=== PATIENT | male | born 1975 | race Two or more races ===

== ENCOUNTER 2018-02-12 18:12 | Emergency (ER) | payer OTHER ==
[~2018-02-12] VITALS: Ht 165.1 cm; Wt 97.5 kg
[2018-02-12] MEDS ORDERED: LISINOPRIL20 MG PO (18:24)
== END 2018-02-12 20:37 | disposition home or self-care (01) ==
LOC: ED 18:12
DX: R51 Headache (principal); Z88.5 Allergy status to narcotic agent; Z79.899 Other long term (current) drug therapy
CPT/HCPCS: 99282

== ENCOUNTER 2019-12-06 22:07 | Emergency (ER) | payer OTHER ==
[~2019-12-06] VITALS: Ht 165.1 cm; Wt 109.3 kg
[~2019-12-06 22:07] MED LIST: LISINOPRIL20 MG PO
--- NOTE | 2019-12-07 15:04 | EKG ---
[facility] [address] [facility] [place], [place] [address] Signed Normal sinus rhythm Rightward axis Borderline ECG No previous ECGs available Confirmed by LOWELL BRAXTON MD ([id number]) on 12/07/2019 3:04:00 PM Electronically Signed By: LOWELL RBAXTON MD 12/07/19 1504 PATIENT NAME: TORI MONTOYA Electrocardiogram DATE OF : 73 PHYSICIAN: LOWELL BRAXTON MD REPORT #: [id number] REPORT IS CONFIDENTIAL AND NOT TO BE RELEASED WITHOUT AUTHORIZATION
== END 2019-12-06 23:44 | disposition home or self-care (01) ==
LOC: ED 22:07
DX: R00.2 Palpitations (principal); I10 Essential (primary) hypertension; Z88.5 Allergy status to narcotic agent; Z79.899 Other long term (current) drug therapy
CPT/HCPCS: 71045; 80053; 83735; 84484; 85025; 93005; 93010; 93225; 93226; 93227; 99285-25

== ENCOUNTER 2020-01-28 10:48 | Emergency (ER) | payer OTHER ==
[~2020-01-28] VITALS: Ht 165.1 cm; Wt 109.3 kg
--- OUTSIDE RECORDS SUMMARY | ~2020-01-28 | XMS | Encounter Summary ---
Demographics + + + | Address | [address] | | | [place] [address] | + + + | Home Phone | | + + + | Preferred Language | Unknown | + + + | Marital Status | Single | + + + | Tenriism Affiliation | Unknown | + + + | Race | Unknown | + + + | Ethnic Group | Unknown | + + + Author + + + | Author | [facility] | | | and [place] | + + + | Organization | [facility] | | | and [place] | + + + | Address | Unknown | + + + | Phone | Unavailable | + + + Support + + +---------+ + | Name | Relationship | Address | Phone | + + +---------+ + | List None To | ECON | Unknown | | + + +---------+ + Care Team Providers + +------+ + | Care Wax Specialist Name | Role | Phone | + +------+ + | Lynn Gallardo PA-C | PCP | | + +------+ + Reason for Visit + + + | Reason | Comments | + + + | New Patient | bump on tongue, hurts when bits,has been there for about year in | | | half | + + + Evaluate & Treat (Routine) +--------+--------+ + + + + | Status | Reason | Specialty | Diagnoses / | Referred By | Referred To | | | | | Procedures | Contact | Contact | +--------+--------+ + + + + | Closed | | Otolaryngolog | Diagnoses | [place], | Tyron Minor | | | | y | Bump on end | RAUL Bailey | MD Jair [address] | | | | | of tongue | [address] | | | | | Procedures | [facility] | [address] | | | | | Office | [address] | [place], | | | | | Consult | [place], | [place] [address] | | | | | | [place] [address] | Phone: | | | | | | Phone: | [phone] | | | | | | [phone] | Fax: | | | | | | Fax: | [phone] | | | | | | [phone] | | +--------+--------+ + + + + Encounter Details +--------+---------+ + + + | Date | Type | Department | Care Team | Description | +--------+---------+ + + + | 05/19/ | Office | [facility] | Tyron Minor MD | Neoplasm of | | 2015 | Visit | OTOLARYNGOLOGY [address] | [address] [place] | uncertain behavior | | | | [address] | [address] [place], | of lip, oral cavity, | | | | [place], [place] | [place] [address] | and pharynx | | | | [address] | [phone] | (Primary Dx) | | | | [phone] | | | +--------+---------+ + + + Social History + +-------+ +--------+------+ | Tobacco Use | Types | Packs/Day | Years | Date | | | | | Used | | + +-------+ +--------+------+ | Never Smoker | | | | | + +-------+ +--------+------+ + + +---------+ + | Alcohol Use | Drinks/Week | oz/Week | Comments | + + +---------+ + | Not Asked | 0 Standard drinks | 0.0 | | | | or equivalent | | | + + +---------+ + + + + | Sex Assigned at | Date Recorded | | | | + + + | Not on file | | + + + + + + + | Job Start Date | Occupation | Industry | + + + + | Not on file | Not on file | Not on file | + + + + + + + + | Travel History | Travel Start | Travel End | + + + + + + | No recent travel history available. | + + documented as of this encounter Last Filed Vital Signs + + + + + | Vital Sign | Reading | Time Taken | Comments | + + + + + | Blood Pressure | - | - | | + + + + + | Pulse | 70 | 05/19/2015 8:06 AM | | | | | PDT | | + + + + + | Temperature | - | - | | + + + + + | Respiratory Rate | 16 | 05/19/2015 8:06 AM | | | | | PDT | | + + + + + | Oxygen Saturation | 93% | 05/19/2015 8:06 AM | | | | | PDT | | + + + + + | Inhaled Oxygen | - | - | | | Concentration | | | | + + + + + | Weight | 97.5 kg (215 lb) | 05/19/2015 8:06 AM | | | | | PDT | | + + + + + | Height | 167.6 cm (5' 6") | 05/19/2015 8:06 AM | | | | | PDT | | + + + + + | Body Mass Index | 34.7 | 05/19/2015 8:06 AM | | | | | PDT | | + + + + + documented in this encounter Progress Notes Tyron Minor MD - 05/19/2015 8:37 AM PDT [facility] OTOLARYNGOLOGY [address] [facility] [address] OFFICE NOTE TYRON MINOR MD Patient: TORI MCCORMICK Admitting: MR #: [id number] LOC: PT TYPE: Adm Date: 05/19/2015 : 1975 NEW PATIENT VISIT DATE OF VISIT: 05/19/2015. The patient comes in because he has an area that he traumatized on the tip of his tongue b ack about a year and a half ago. It does not go down and he occasionally bites on it and i nflames it and continues to have a cycle of swelling and then going down. He comes in to [facility] if he can get rid of this because it is giving him a lot of trouble. He is not having any other complaints at the current time. PHYSICAL EXAMINATION: GENERAL: Shows an alert 39-year-old male. He is communicating well. His voice quality is good. HEENT: Skin of the face, nose and ears all appear healthy. Parotid, submandibular gland areas are smooth. Facial movement is symmetrical, without any weakness noted. Ear canals are open, they are clean. Drums are clear. Nasal passages: No obstruction, no mass or le jaclyn noted. Floor of the mouth, buccal mucosa, hard palate, teeth, lips, gums are smooth a nd healthy. No mass seen in the oropharynx and posterior pharyngeal wall was smooth. Soft palate was smooth and moved symmetrically. The tongue, he has an elevated lesion on the t ip of his tongue on the left-hand side. It looks like a scar tissue type of lesion. It s ticks out and it matches where he has a tooth that is bent back in and not straight on the left-hand side. This is the area that he keeps traumatizing. IMPRESSION: Left tongue growth secondary to trauma. PLAN: The patient was taken down to the minor procedure room and the lesion was removed. PROCEDURE: After the patient was advised on the procedure, the area to be removed was ini tially painted with some viscous Xylocaine. Once this was completed, it was injected with 1-percent Xylocaine with epinephrine. An elliptical incision was made to remove the entire lesion and then the wound was closed with interrupted 4-0 Vicryl sutures, 2 of them to co ntrol bleeding. Once completed, the patient was scheduled to have the sutures removed in 6 days. PROGNOSIS: Immediate and remote is good. BLOOD LOSS: About 1 mL. TYRON MINOR MD Dictated by TYRON MINOR MD 05/19/2015 08:37:34 Transcribed on 05/19/2015 08:49:11 by terry job# [id number] Confirmation #: [id number] signed by Tyron Minor MD at 05/19/2015 10:20 AM Tyron Patterson MD - 05/19/2015 8:33 AM PDTSee dictation #[id number] signed by Jose Minor MD at 05/19/2015 8:41 AM PDTdocumented in this encounter Plan of Treatment Not on filedocumented as of this encounter Visit Diagnoses + + | Diagnosis | + + | Neoplasm of uncertain behavior of lip, oral cavity, and pharynx - Primary | + + documented in this encounter
--- OUTSIDE RECORDS SUMMARY | ~2020-01-28 | XMS | Encounter Summary ---
Demographics + + + | Address | [address] | | | [place] [address] | + + + | Home Phone | | + + + | Preferred Language | Unknown | + + + | Marital Status | Single | + + + | Tenriism Affiliation | Unknown | + + + | Race | Unknown | + + + | Ethnic Group | Other Race | + + + Author + + + | Author | [facility] | + + + | Organization | [facility] | + + + | Address | Unknown | + + + | Phone | Unavailable | + + + Support + + +---------+ + | Name | Relationship | Address | Phone | + + +---------+ + | None Per Pt | ECON | Unknown | Unavailable | + + +---------+ + Care Team Providers + +------+ + | Care Automatic I Threading Machine Feeder Name | Role | Phone | + +------+ + | Matthew Moise MD | PCP | | + +------+ + Reason for Visit + + + | Reason | Comments | + + + | Follow-up visit | | + + + Office Visit - E/M Services (Routine) +--------+--------+ + + + + | Status | Reason | Specialty | Diagnoses / | Referred By | Referred To | | | | | Procedures | Contact | Contact | +--------+--------+ + + + + | Closed | | Ophthalmology | | [place], | [place], | | | | | | Cristhian Duarte MD | Tosin Mulligan MD | | | | | | [address] | [address] | | | | | | [address] | [address] | | | | | | [place] | [place] | | | | | | [address] | [place], [place] | | | | | | Phone: | [phone] | | | | | | [phone] | Phone: | | | | | | Fax: | [phone] | | | | | | [phone] | Fax: | | | | | | | [phone] | +--------+--------+ + + + + Encounter Details +--------+---------+ + + + | Date | Type | Department | Care Team | Description | +--------+---------+ + + + | 06/06/ | Office | [facility] | Tosin Clancy, | Neoplasm of | | 2018 | Visit | [place] [facility] at | [address] | uncertain behavior | | | | [facility] [address] | [address] | of eye (Primary Dx) | | | | [address] | [place], [place] | | | | | Eye [place], [facility] | [address] | | | | | floor [place], [place] | [phone] | | | | | [address] | | | +--------+---------+ + + + Social History + +-------+ +--------+------+ | Tobacco Use | Types | Packs/Day | Years | Date | | | | | Used | | + +-------+ +--------+------+ | Former Smoker | | | | | + +-------+ +--------+------+ + +---+---+---+ | Smokeless Tobacco: | | | | | Never Used | | | | + +---+---+---+ + + +---------+ + | Alcohol Use | Drinks/Week | oz/Week | Comments | + + +---------+ + | Yes | | | very seldom | + + +---------+ + + + [...] + + documented as of this encounter Progress Notes Tosin Clancy MD - 06/06/2018 10:00 AM PDTFormatting of this note might be different fro m the original. [facility] Division Progress Note 06/06/2018 Neptali Mccormick is a 42 y.o. male who returns for follow up: Chief Complaint Patient presents with Follow-up visit RTC for pigmented lesion OS. Reports that he is doing well. Thinks lesion may have grown a little. Never had any pain does not bother him in any way. VA remains stable. Pain: 0 ROS: Medications, allergies, medical, surgical and family history were reviewed by me at th is visit utilizing [facility] patient history form and Epic patient history pertinent positives: No past medical history on file. Past Surgical History Procedure Laterality Date Wrist surgery 2004 History Smoking Status Former Smoker Smokeless Tobacco Never Used No Known Allergies Current Outpatient Prescriptions (Other) Medication Sig lisinopril All else unless noted was neg. (fever, wt. loss, ENT, cardiovascular, pulmonary, GI, urinar y, neurologic, endocrine, bleeding/blood disorders, AIDS/HIV, cancer/tumors, arthritis) Medical Management Trainer Attestation: Brijesh Boyd, performed and reviewed the above history, medica tions, allergies, as well as performed elements noted in the Base Ophthalmology Exam. Examination: Base Exam Visual Acuity (Snellen - Linear) Right Left Dist sc 20/20 20/20 Tonometry (Tonopen, 10:47 AM) Right Left Pressure 14 13 Neuro/Psych Oriented x3: Yes Mood/Affect: Normal Slit Lamp and Fundus Exam Slit Lamp Exam Right Left Lids/Lashes Normal Normal Conjunctiva/Sclera 7:30 patch of light pigment at limbus 2.4 mm x 2.4 mm, temporal pinguec jamila, nasal pinguecula, everted lid WNL Temporal pinguecula, pigmented elevated lesion 4 mm ( v) x 4.4 mm (h) - most pigmented nasally with variable pigment through rest of the lesion. C lear cysts throughout lesion with no feeder vessels, Everted lids WNL Cornea All layers clear All layers clear Anterior Chamber Deep and quiet Deep and quiet Iris Normal Normal Lens Clear Clear Vitreous Normal Normal IMPRESSION: 1. Elevated pigmented conjunctival lesion, OS - Has been present since at least 2004 - Cysts in lesion visible on clinical exam and anterior segment OCT - Patient is Lithuanian - Unchanged compared with last visit 2. Complexion-related hyperpigmentation, OD PLAN: 1. Reviewed elevated pigmented lesions and differential diagnosis including, most likely, n evus vs. melanoma 2. Given presence since 2004, clear cysts, and no change since last visit discussed that mo st likely nevus and will continue to monitor 3. Patient to obtain records from Dr. Joy's office for size measurements - have not yet been able to get - If change, plan for excision with cryotherapy 06/11 Addendum: records reviewed but without measurements so unable to compare to prior to f irst exam at [facility] 4. Return precautions reviewed including for change noted by patient or family RTC 6 months with slit lamp photos, sooner if needed TOSIN CLANCY MD [facility] [place] [address] Mailcode: [place] [phone] documented in this en counter Plan of Treatment +--------+---------+ + + + | Date | Type | Specialty | Care Team | Description | +--------+---------+ + + + | 03/11/ | Office | Ophthalmology | Tosin Clancy, | | | 2019 | Visit | | MD Yousif | | | | | | [address] | | | | | | [place], [place] | | | | | | [address] | | | | | | [phone] | | | | | | | | +--------+---------+ + + + documented as of this encounter Procedures + +--------+ + + + | Procedure Name | Priori | Date/Time | Associated Diagnosis | Comments | | | ty | | | | + +--------+ + + + | SLIT LAMP PHOTOS | Routin | 06/06/2018 | Neoplasm of | Results for this | | | e | 11:17 AM | uncertain behavior | procedure are in the | | | | PDT | of eye | results section. | + +--------+ + + + documented in this encounter Results SLIT LAMP PHOTOS (06/06/2018 11:17 AM PDT) + + + | Narrative | Performed At | + + + | Elevated | [facility] | | nasal, pigmented conjunctival lesion with variable pigmentation. | [facility] | | +definite cysts No change compared with last photos | | |No change compared with last photos | | + + + + + + + + | Performing | Address | City/State/Zipcode | Phone Number | | Organization | | | | + + + + + | [facility] | [address] | [place] [address] | | | INSTITUTE | [place]. 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
--- OUTSIDE RECORDS SUMMARY | ~2020-01-28 | XMS | Encounter Summary ---
Demographics + + + | Address | [address] | | | [place] [address] | + + + | Home Phone | | + + + | Preferred Language | Unknown | + + + | Marital Status | Single | + + + | Zoroastrian Affiliation | Unknown | + + + | Race | Unknown | + + + | Ethnic Group | Other Race | + + + Author + + + | Author | [facility] | + + + | Organization | [facility] | + + + | Address | Unknown | + + + | Phone | Unavailable | + + + Support + + +---------+ + | Name | Relationship | Address | Phone | + + +---------+ + | None Per Pt | ECON | Unknown | Unavailable | + + +---------+ + Care Team Providers + +------+ + | Care Masonry Teacher Name | Role | Phone | + [...] [address] | | | | | | [address] | [place], [place] | | | | | | Phone: | [phone] | | | | | | [phone] | Phone: | | | | | | Fax: | [phone] | | | | | | [phone] | Fax: | | | | | | | [phone] | +--------+--------+ + + + + Encounter Details +--------+---------+ + + + | Date | Type | Department | Care Team | Description | +--------+---------+ + + + | 11/28/ | Office | [facility] | Tosin Clancy, | Neoplasm of | | 2019 | Visit | [place] [facility] at | [address] | uncertain behavior | | | | [facility] [address] | [address] | of eye (Primary Dx) | | | | [address] | [place], [place] | | | | | Eye [place], [facility] | [address] | | | | | floor [place], [place] | [phone] | | | | | [address] | [...] encounter Progress Notes Tosin Clancy MD - 11/28/2018 10:40 AM PSTFormatting of this note might be different fro m the original. Cornea Division Progress Note 11/28/2018 Neptali Mccormick is a 43 y.o. male who returns for follow up Chief Complaint Patient presents with Follow-up visit RTC for 6 month follow up for elevated pigmented conjunctival lesion, OS Pt states OS is doing well. Denies any irritations or discomforts. States VA is stable. Cur rently does not use any gtts. Pain: 0 ROS: Medications, allergies, medical, surgical and family history were reviewed by me at th is visit utilizing [facility] patient history form and Epic patient history pertinent positives: No past medical history on file. Past Surgical History Procedure Laterality Date Wrist surgery 2004 Family History History Smoking Status Former Smoker Smokeless Tobacco Never Used No Known Allergies Current Outpatient Prescriptions (Other) Medication Sig lisinopril All else unless noted was neg. (fever, wt. loss, ENT, cardiovascular, pulmonary, GI, urinar y, neurologic, endocrine, bleeding/blood disorders, AIDS/HIV, cancer/tumors, arthritis) Private Household Worker Attestation: IShirlene, performed and reviewed the above history, medica tions, allergies, as well as performed elements noted in the Base Ophthalmology Exam. Examination: Base Exam Visual Acuity (Snellen - Linear) Right Left Dist sc 20/20 20/20 Tonometry (Tonopen, 10:50 AM) Right Left Pressure 16 19 Neuro/Psych Oriented x3: Yes Mood/Affect: Normal Slit [...] and anterior segment OCT - Patient is Yemeni - Unchanged compared with last visit on both exam and photos (slit lamp photo with lashaun connor of growth inferiorly but likely artifact because space between lesion and vessels present on clinical exam) 2. Complexion-related hyperpigmentation, OD PLAN: 1. Reviewed elevated pigmented lesions and differential diagnosis including nevus vs. melan wilda 2. Given presence since 2004, clear cysts, and no change since last visit discussed that mo st likely nevus and will continue to monitor 3. Return precautions reviewed including for change noted by patient or family - Discussed follow up in [place] but patient prefers to be followed here for this RTC 1 year with slit lamp photos, sooner as needed - JIGNESHE TOSIN CLANCY MD [facility] [place] [facility] [address] Mailcode: [place] [phone] documented in this en counter Plan of Treatment +--------+---------+ + + + | Date | Type | Specialty | Care Team | Description | +--------+---------+ + + + | 03/11/ | Office | Ophthalmology | Tosin Clancy, | | | 2019 | Visit | | MD [address]ousif | | | | | | [address] | | | | | | [place], [place] | | | | | | [address] | | | | | | [phone] | | | | | | | | +--------+---------+ + + + documented as of this encounter Procedures + +--------+ + + + | Procedure Name | Priori | Date/Time | Associated Diagnosis | Comments | | | ty | | | | + +--------+ + + + | SLIT LAMP PHOTOS | Routin | 11/28/2018 | Neoplasm of | Results for this | | | e | 1:00 PM | uncertain behavior | procedure are in the | | | | PST | of eye | results section. | + +--------+ + + + documented in this encounter Results SLIT LAMP PHOTOS (11/28/2018 1:00 PM PST) + + + | Narrative | Performed At | + + + | Elevated | [facility] | | pigmented lesion of nasal conjunctiva with definite cysts. Unchanged | [facility] | | compared with last photos | | + + + + + + + + | Performing | Address | City/State/Zipcode | Phone Number | | Organization | | | | + + + + + | [facility] | [address] | [place] [address] | | | INSTITUTE | [place]. 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
--- OUTSIDE RECORDS SUMMARY | ~2020-01-28 | XMS | Clinical Summary ---
Demographics + + + | Address | [address] | | | [place] [address] | + + + | Home Phone | | + + + | Preferred Language | Unknown | + + + | Marital Status | Single | + + + | Jehovah'S Witness Affiliation | Unknown | + + + | Race | Unknown | + + + | Ethnic Group | Other Race | + + + Author + + + | Author | [facility] | + + + | Organization | [facility] | + + + | Address | Unknown | + + + | Phone | Unavailable | + + + Support + + +---------+ + | Name | Relationship | Address | Phone | + + +---------+ + | None Per Pt | ECON | Unknown | Unavailable | + + +---------+ + Care Team Providers + +------+ + | Care Sheet Sorter Name | Role | Phone | + +------+ + | Matthew Moise MD | PCP | | + +------+ + Source Comments [facility] is fully live on both [facility] and [facility] InPatient.[facility] Allergies No Known Allergies Medications + +-----+ +---------+------+------+-------+ | Medication | Sig | Dispensed | Refills | Star | End | Statu | | | | | | t | Date | s | | | | | | Date | | | + +-----+ +---------+------+------+-------+ | lisinopril 20 mg | | | 0 | 03/2 | | Activ | | oral tablet | | | | 6/20 | | e | | | | | | 18 | | | + +-----+ +---------+------+------+-------+ Active Problems Not on file Social History + +-------+ +--------+------+ | Tobacco [...] recent travel history available. | + + Last Filed Vital Signs + + + + + | Vital Sign | Reading | Time Taken | Comments | + + + + + | Blood Pressure | 147/90 | 01/01/2013 9:38 AM | | | | | PDT | | + + + + + | Pulse | 84 | 01/01/2013 9:38 AM | | | | | PDT | | + + + + + | Temperature | - | - | | + + + + + | Respiratory Rate | - | - | | + + + + + | Oxygen Saturation | - | - | | + + + + + | Inhaled Oxygen | - | - | | | Concentration | | | | + + + + + | Weight | 95.3 kg (210 lb) | 07/30/2013 4:07 PM | | | | | PDT | | + + + + + | Height | 162.6 cm (5' 4") | 07/30/2013 4:07 PM | | | | | PDT | | + + + + + | Body Mass Index | 36.05 | 07/30/2013 4:07 PM | | | | | PDT | | + + + + + Plan of Treatment +--------+---------+ + + + | Date | Type | Specialty | Care Team | Description | +--------+---------+ + + + | 03/11/ | Office | Ophthalmology | Hellen Clancy, | | | 2019 | Visit | | [address] | [address] | | | | | | [place], [place] | | | | | | [address] | | | | | | [phone] | | | | | | | | +--------+---------+ + + + + + + + + | Health Maintenance | Due Date | Last Done | Comments | + + + + + | Influenza (Flu) | | | | | vaccination (#1) | 9 | | | + + + + + | Pneumococcal | Aged Out | | No longer eligible | | vaccination | | | based on patient's | | | | | age to complete this | | | | | topic | + + + + + Results Not on filefrom Last 3 Months Insurance + +--------+ +--------+ + +------+ | Payer | Benefi | Subscriber | Effect | Phone | Address | Type | | | t Plan | ID | tonia | | | | | | / | | Dates | | | | | | Group | | | | | | + +--------+ +--------+ + +------+ | [employer] | PHP | [phone] | 09/30/19 | [phone] | [address] | PPO | | | [address] | | 10-Pre | 0 | [address] | | [address] | | sent | | [place], | | | | [place] | | | | [place] [address] | | + +--------+ +--------+ + +------+ + +--------+ +--------+ + + | Guarantor Name | Accoun | Relation to | Date | Phone | Billing Address | | | t Type | Patient | of | | | | | | | | | | + +--------+ +--------+ + + | Neptali Mccormick | Person | Self | [birth year] | [address] | | | [place] | | 1975 | [phone] | [place] [address] | | | vinicius | | | 6 (Home) | | + +--------+ +--------+ + +
--- OUTSIDE RECORDS SUMMARY | ~2020-01-28 | XMS | Encounter Summary ---
Demographics + + + | Address | [address] | | | [place] [address] | + + + | Home Phone | | + + + | Preferred Language | Unknown | + + + | Marital Status | Single | + + + | Scientology Affiliation | Unknown | + + + | Race | Unknown | + + + | Ethnic Group | Other Race | + + + Author + + + | Author | [facility] | + + + | Organization | [facility] | + + + | Address | Unknown | + + + | Phone | Unavailable | + + + Support + + +---------+ + | Name | Relationship | Address | Phone | + + +---------+ + | None Per Pt | ECON | Unknown | Unavailable | + + +---------+ + Care Team Providers + +------+ + | Care Textile Technologist Name | Role | Phone | + +------+ + | Matthew Moise MD | PCP | | + +------+ + Encounter Details +--------+ + + + + | Date | Type | Department | Care Team | Description | +--------+ + + + + | 03/06/ | Telephone | [facility] | Hellen Clancy, | | | 2019 | | [place] at | [address] | | | | [address] | [place] | | | | | [address] [place] [address] | [place], [place] | | | | | Eye [place], [facility] | [address] | | | | | [place], [place] | [phone] | | | | | [address] | | | +--------+ + + + + Social History + +-------+ [...] + + documented as of this encounter Plan of Treatment +--------+---------+ + + + | Date | Type | Specialty | Care Team | Description | +--------+---------+ + + + | 03/11/ | Office | Ophthalmology | Hellen Clancy, | | | 2019 | Visit | | [address] | | | | | | [place] | | | | | | [place] | | | | | | [address] | | | | | | [phone] | | | | | | | | +--------+---------+ + + + documented as of this encounter Visit Diagnoses Not on filedocumented in this encounter"
--- OUTSIDE RECORDS SUMMARY | ~2020-01-28 | XMS | Encounter Summary ---
Demographics + + + | Address | [address] | | | [place] [address] | + + + | Home Phone | | + + + | Preferred Language | Unknown | + + + | Marital Status | Single | + + + | Druze Affiliation | Unknown | + + + | Race | Unknown | + + + | Ethnic Group | Other Race | + + + Author + + + | Author | [facility] | + + + | Organization | [facility] | + + + | Address | Unknown | + + + | Phone | Unavailable | + + + Support + + +---------+ + | Name | Relationship | Address | Phone | + + +---------+ + | None Per Pt | ECON | Unknown | Unavailable | + + +---------+ + Care Team Providers + +------+ + | Care Pond Tender Name | Role | Phone | + +------+ + | Matthew Moise MD | PCP | | + +------+ + Reason for Referral Diagnostic Testing (Routine) +--------+--------+ + + + + | Status | Reason | Specialty | Diagnoses / | Referred By | Referred To | | | | | Procedures | Contact | Contact | +--------+--------+ + + + + | Closed | | Radiology | Diagnoses | Quilici, | Rad General | | | | | Shoulder | Nicki Escalona, | [address] | | | | | pain | PA-C [address] | | | | | Procedures | [address] | [place] for | | | | | X-RAY | [facility] | [facility] and | | | | | ARTHROGRAM | Rd | Healing, | | | | | SHOULDER LT | [facility] [place] | Building [address], | | | | | W/INJECTION | [address] | [facility] Floor | | | | | | Phone: | [place], [place] | | | | | | [phone] | [address] | | | | | | Fax: | Phone: | | | | | | [phone] | [phone] | | | | | | | Fax: | | | | | | | [phone] | +--------+--------+ + + + + Reason for Visit Diagnostic Testing (Routine) +--------+--------+ + + + + | Status | Reason | Specialty | Diagnoses / | Referred By | Referred To | | | | | Procedures | Contact | Contact | +--------+--------+ + + + + | Closed | | Radiology | Diagnoses | Quilici, | Rad General | | | | | Shoulder | Nicki M, | [address] | | | | | pain | PA-C [address] | | | | | Procedures | [facility] | [place] [facility] | | | | | X-RAY | [facility] | Health and | | | | | ARTHROGRAM | Rd | Healing, | | | | | SHOULDER LT | [facility] [place] | Building 1, | | | | | W/INJECTION | [address] | 3rd Floor | | | | | | Phone: | [place], [place] | | | | | | [phone] | [address] | | | | | | Fax: | Phone: | | | | | | [phone] | [phone] | | | | | | | Fax: | | | | | | | [phone] | +--------+--------+ + + + + Encounter Details +--------+ + + + + | Date | Type | Department | Care Team | Description | +--------+ + + + + | 06/30/ | Hospital | Diagnostic Imaging | | | | 2012 | Encounter | Services at [facility] | | | | | | [address] | | | | | | [facility]hea Story [facility] | | | | | | [address] | | | | | | [place], [place] | | | | | | [address] | | | | | | [phone] | | | +--------+ + + + [...] Comments | + + +---------+ + | No | | | | + + +---------+ + [...] Ophthalmology | Hellen Clancy, | | | 2020 | Visit | | MD Benja [address]ER | | | | | | [place] | | | | | | [place], [place] | | | | | | [address] | | | | | | [phone] | | | | | | | | +--------+---------+ + + + documented as of this encounter Procedures + +--------+ + + + | Procedure Name | Priori | Date/Time | Associated Diagnosis | Comments | | | ty | | | | + +--------+ + + + | X-RAY ARTHROGRAM | Routin | 06/30/2013 | Shoulder pain | Results for this | | SHOULDER LT | e | 4:53 PM | | procedure are in the | | W/INJECTION | | PDT | | results section. | + +--------+ + + + documented in this encounter Results X-RAY ARTHROGRAM SHOULDER LT W/INJECTION (06/30/2013 4:53 PM PDT) + + + + + + | Component | Value | Ref Range | Performed | Pathologist | | | | | At | Signature | + + + + + + | X-RAY | STUDY: ARTHROGRAM | | | | | ARTHROGRAM | SHOULDER LT W/INJ | | | | | SHOULDER LT | 06/30/13 15:32:00 | | | | | | HISTORY: Left shoulder | | | | | W/INJECTION | pain. COMPARISON: Left | | | | | | shoulder radiographs | | | | | | 06/04/13. PROCEDURE: A | | | | | | PARQ conference was held | | | | | | with the patient and | | | | | | informed consent was | | | | | | obtained.A standard | | | | | | "timeout" was performed. | | | | | | After placing the | | | | | | patient supine on | | | | | | thefluoroscopy table, | | | | | | the left glenohumeral | | | | | | joint was | | | | | | fluoroscopically | | | | | | localized,and the skin | | | | | | was marked and then | | | | | | prepped and draped in | | | | | | usual sterile | | | | | | fashion.The skin and | | | | | | deeper soft tissues were | | | | | | anesthetized with 3 ml | | | | | | buffered 1%lidocaine. | | | | | | Utilizing fluoroscopic | | | | | | guidance, a 22G 3.5" | | | | | | spinal needle | | | | | | wasadvanced into the | | | | | | glenohumeral joint, and | | | | | | 10 mL of a standard MR | | | | | | arthrogrammixture (7 mL | | | | | | sterile saline, 5 mL | | | | | | iodinated contrast, 5 mL | | | | | | 0.5% | | | | | | ropivacaine,0.05-mL | | | | | | gadolinium, and 0.3-mL | | | | | | 1:1000 epinephrine) was | | | | | | injected. The | | | | | | needlewas then removed. | | | | | | The patient tolerated | | | | | | the procedure well | | | | | | without | | | | | | immediatecomplications. | | | | | | Total pulsed fluoroscopy | | | | | | time: 16 seconds. | | | | | | FINDINGS: Images show | | | | | | contrast opacification | | | | | | of the left glenohumeral | | | | | | joint | | | | | | withoutextravasation. | | | | | | IMPRESSION: Technically | | | | | | successful left shoulder | | | | | | arthrogram for MR | | | | | | purposes. By my | | | | | | electronic signature | | | | | | listed below, I, the | | | | | | attending radiologist, | | | | | | waspresent for the | | | | | | critical portions of the | | | | | | procedure as described | | | | | | in this note. Attending | | | | | | Radiologists: JUANCHO ALAS, | | | | | | MDAuthor: KIRSTY | | | | | | MD JACKI I have | | | | | | personally viewed this | | | | | | procedure/exam, reviewed | | | | | | this report, and | | | | | | madechanges to it where | | | | | | appropriate. | | | | | | Final/Electronically | | | | | | signed / JUANCHO ALAS | | | | | | 07/01/2013 16:07 PM | | | | | | Pending final approval | | | | | | / KIRSTY ECHEVERRIA | | | | | | 06/30/2013 16:52 PM | | | | | | Preliminary / | | | | | | KIRSTY ECHEVERRIA | | | | | | 06/30/2013 16:50 PM | | | | + + + + + + + + | Specimen | + + | | + + + +---------+ + + | Performing | Address | City/State/Zipcode | Phone Number | | Organization | | | | + +---------+ + + | [facility] DEPARTMENT OF | | | | | RADIOLOGY | | | | + +---------+ + + documented in this encounter Visit Diagnoses + + | Diagnosis | + + | Shoulder pain Pain in joint, shoulder region | + + documented in this encounter
--- OUTSIDE RECORDS SUMMARY | ~2020-01-28 | XMS | Encounter Summary ---
Demographics + + + | Address | [address] | | | [place] [address] | + + + | Home Phone | | + + + | Preferred Language | Unknown | + + + | Marital Status | Single | + + + | Pentecostalism Affiliation | Unknown | + + + | Race | Unknown | + + + | Ethnic Group | Other Race | + + + Author + + + | Author | [facility] | + + + | Organization | [facility] | + + + | Address | Unknown | + + + | Phone | Unavailable | + + + Support + + +---------+ + | Name | Relationship | Address | Phone | + + +---------+ + | None Per Pt | ECON | Unknown | Unavailable | + + +---------+ + Care Team Providers + +------+ + | Care Plywood Layup Line Core Layer Name | Role | Phone | + [...] + + + | Closed | | Orthopedics | Diagnoses | Non-[facility] | Mao, | | | | | R Shoulder | Epic Dept | Cullen Nassar MD | | | | | Labral Tear, | | [address] | | | | | pt to hand | | [address] | | | | | carry | | [address] [place], | | | | | imaging. | | [place] | | | | | L shoulder | | [address] | | | | | pain, no | | Phone: | | | | | imaging or | | [phone] | | | | | notes | | Fax: | | | | | | | [phone] | +--------+--------+ + + + + Encounter Details +--------+---------+ + + + | Date | Type | Department | Care Team | Description | +--------+---------+ + + + | 07/30/ | Office | Orthopaedics | Cullen Cavanaugh, | Rotator cuff | | 2012 | Visit | Faculty at [place] | [address] | impingement syndrome | | | | for Health and | [address] | (Primary Dx) | | | | Healing [address] | [facility] [place] | | | | | [facility] for | [address] | | | | | Health and Healing, | [phone] | | | | | | | | | | | floor [facility] [place] | | | | | | [address] | | | | | | [phone] | | | +--------+---------+ + + + [...] + + + + | Pulse | - | - | | + [...] + documented in this encounter Progress Notes Cullen Cavanaugh MD - 08/09/2013 10:19 PM KAURNeptali Mccormick is a 38 y.o. male here for lef t shoulder MR arth review. He was planning on right shoulder surgery when his left shoulder became even more symptomatic than the right. PE: Left shoulder is stable with firm endpooint with load shift, pain but no apprehension w ith apprehension relocation testing. Neg jerk. Pos impingement . MRI arth left sh:1. Nondisplaced tear of the base of the anteroinferior glenoid labrum. 2. 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 3. Nondisplaced SLAP tear of the posterosuperior glenoid labrum. A/P: I suspect Neptali had years of anterior laxity causing GLAD lesion that has since impro maddison as he has become stiffer with age. 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 I recommended starting today with a daignostic and therapeutic subacromial steroid inejction . He wishes to proceed. After a PARQ conference regarding this procedure, alternative, risks and an opportunity for questions is completed for a Subacromial injection. This was performed under sterile condit ions, via a standard approach, 8.5cc of fluid is injected comprised of 7cc lidocaine and 1.5 cc of Kenalog (40mg/cc). No complications are encountered and a bandage is applied. Followin g a 5 minute convalescence period, the patient describes partial pain relief. Education and explanation regarding the underlying pathology is again provided as well as restrictions and recommendations. gary in this e ncounter Plan of Treatment +--------+---------+ + + + | Date | Type | Specialty | Care Team | Description | +--------+---------+ + + + | 03/11/ | Office | Ophthalmology | Hellen Clancy, | | | 2019 | Visit | | [address] | | | | | | [place] | | | | | | [place], [place] | | | | | | [address] | | | | | | [phone] | | | | | | | | +--------+---------+ + + + documented as of this encounter Procedures + +--------+ + + + | Procedure Name | Priori | Date/Time | Associated Diagnosis | Comments | | | ty | | | | + +--------+ + + + | MO DRAIN/INJECT | Routin | 08/09/2013 | Rotator cuff | | | LARGE JOINT/BURSA | e | 10:35 PM | impingement syndrome | | | W/O US GUIDE | | PST | | | + +--------+ + + + documented in this encounter Visit Diagnoses + + | Diagnosis | + + | Rotator cuff impingement syndrome - Primary Disorders of bursae and tendons in | | shoulder region, unspecified | + + documented in this encounter
--- OUTSIDE RECORDS SUMMARY | ~2020-01-28 | XMS | Encounter Summary ---
Demographics + + + | Address | [address] | | | [place] [address] | + + + | Home Phone | | + + + | Preferred Language | Unknown | + + + | Marital Status | Single | + + + | Episcopal Affiliation | Unknown | + + + | Race | Unknown | + + + | Ethnic Group | Other Race | + + + Author + + + | Author | [facility] | + + + | Organization | [facility] | + + + | Address | Unknown | + + + | Phone | Unavailable | + + + Support + + +---------+ + | Name | Relationship | Address | Phone | + + +---------+ + | None Per Pt | ECON | Unknown | Unavailable | + + +---------+ + Care Team Providers + +------+ + | Care Senior Embedded Software Engineer Name | Role | Phone | + +------+ + | Matthew Moise MD | PCP | | + +------+ + Encounter Details +--------+ + + + + | Date | Type | Department | Care Team | Description | +--------+ + + + + | 06/04/ | Hospital | Radiology/Imaging | | | | 2012 | Encounter | Lab at [facility] [address] | | | | | | [address] [facility] | | | | | | for Health and | | | | | | [facility] 1, | | | | | | 3rd Floor | | | | | | [place], [place] | | | | | | [address] | | | | | | [phone] | | | +--------+ + + + [...] | 03/11/ | Office | Ophthalmology | RadhaHellen ramachandran, | | | 2019 | Visit | | [address] | | | | | [address] | | | | | | [place], [place] | | | | | | [address] | | | | | | [phone] | | | | | | | | +--------+---------+ + + + documented as of this encounter Procedures + +--------+ + + + | Procedure Name | Priori | Date/Time | Associated Diagnosis | Comments | | | ty | | | | + +--------+ + + + | X-RAY SHOULDER 3+ | Routin | 06/04/2013 | Shoulder pain | Results for this | | VIEWS LEFT | e | 10:26 AM | | procedure are in the | | | | PDT | | results section. | + +--------+ + + + documented in this encounter Results X-RAY SHOULDER 3+ VIEWS LEFT (06/04/2013 10:26 AM PDT) + + + + + + | Component | Value | Ref Range | Performed | Pathologist | | | | | At | Signature | + + + + + + | SHOULDER 3+ | STUDY: SHOULDER 3 VIEWS | | | | | VIEWS LEFT | LEFT 06/04/13 10:26:00 | | | | | | COMPARISON: None. | | | | | | HISTORY: Pain. FINDINGS: | | | | | | The osseous structures | | | | | | are intact with no | | | | | | fracture, focal | | | | | | destruction | | | | | | ormalalignment. There | | | | | | is mild glenohumeral | | | | | | spurring and mild | | | | | | inferiorglenohumeral | | | | | | joint space narrowing. | | | | | | The acromioclavicular | | | | | | joint is maintained. The | | | | | | coracoclavicular | | | | | | interval is normal. | | | | | | There is no soft | | | | | | tissue abnormality. | | | | | | IMPRESSION: Mild | | | | | | glenohumeral | | | | | | degenerative joint | | | | | | disease. Attending | | | | | | Radiologists: FERN | | | | | | RELL BAIRESuthor: | | | | | | FERN BAIRES MD I | | | | | | have personally viewed | | | | | | this procedure/exam, | | | | | | reviewed this report, | | | | | | and madechanges to it | | | | | | where appropriate. | | | | | | Final/Electronically | | | | | | signed / FERN | | | | | | VIRY 06/04/2013 | | | | | | 12:40 PM | | | | + + + + + + + + | Specimen | + + | | + + + +---------+ + + | Performing | Address | City/State/Zipcode | Phone Number | | Organization | | | | + +---------+ + + | [facility] DEPARTMENT OF | | | | | RADIOLOGY | | | | + +---------+ + + documented in this encounter Visit Diagnoses + + | Diagnosis | + + | Shoulder pain Pain in joint, shoulder region | + + documented in this encounter"
--- OUTSIDE RECORDS SUMMARY | ~2020-01-28 | XMS | Encounter Summary ---
Demographics + + + | Address | [address] | | | [place] [address] | + + + | Home Phone | | + + + | Preferred Language | Unknown | + + + | Marital Status | Single | + + + | Latter-Day Affiliation | Unknown | + + + | Race | Unknown | + + + | Ethnic Group | Other Race | + + + Author + + + | Author | [facility] | + + + | Organization | [facility] | + + + | Address | Unknown | + + + | Phone | Unavailable | + + + Support + + +---------+ + | Name | Relationship | Address | Phone | + + +---------+ + | None Per Pt | ECON | Unknown | Unavailable | + + +---------+ + Care Team Providers + +------+ + | Care Circular Ripsaw Operator Name | Role | Phone | + +------+ + | Matthew Moise MD | PCP | | + +------+ + Encounter Details +--------+ + + + + | Date | Type | Department | Care Team | Description | +--------+ + + + + | 01/01/ | Hospital | Radiology/Imaging | | | | 2012 | Encounter | Lab at [facility] [address] | | | | | | [address] [facility] | | | | | | for Health and | | | | | | [facility] 1, | | | | | | 3rd Floor | | | | | | [place], [place] | | | | | | [address] | | | | | | [phone] | | | +--------+ + + + [...] [address] | | | | | | [place], [place] | | | | | | [address] | | | | | | [phone] | | | | | | | | +--------+---------+ + + + documented as of this encounter Procedures + +--------+ + + + | Procedure Name | Priori | Date/Time | Associated Diagnosis | Comments | | | ty | | | | + +--------+ + + + | X-RAY SHOULDER 3+ | Routin | 01/01/2013 | Shoulder pain | Results for this | | VIEWS RIGHT | e | 9:37 AM | Shoulder injury | procedure are in the | | | | PDT | | results section. | + +--------+ + + + documented in this encounter Results X-RAY SHOULDER 3+ VIEWS RIGHT (01/01/2013 9:37 AM PDT) + + + + + + | Component | Value | Ref Range | Performed | Pathologist | | | | | At | Signature | + + + + + + | SHOULDER 3+ | STUDY: SHOULDER 3 VIEWS | | | | | VIEWS | RIGHT 01/01/13 09:37:00 | | | | | RIGHT | COMPARISON: None. | | | | | | HISTORY: Pain. FINDINGS: | | | | | | No acute fracture or | | | | | | focal destruction is | | | | | | observed. The | | | | | | glenohumeralalignment is | | | | | | normal. There is mild | | | | | | glenohumeral spurring | | | | | | and mildinferior | | | | | | glenohumeral joint space | | | | | | narrowing. The | | | | | | acromioclavicularjoint | | | | | | is mildly widened. The | | | | | | coracoclavicular | | | | | | interval is normal.No | | | | | | soft tissue abnormality | | | | | | is detected. IMPRESSION: | | | | | | Mild glenohumeral | | | | | | degenerative joint | | | | | | disease. Mildly widened | | | | | | acromioclavicular joint, | | | | | | likely sequelae of | | | | | | prioracromioclavicular | | | | | | separation. Attending | | | | | | Radiologists: FERN | | | | | | RELL BAIRESuthor: | | | | | | FERN BAIRES MD I | | | | | | have personally viewed | | | | | | this procedure/exam, | | | | | | reviewed this report,and | | | | | | made changes to it | | | | | | where appropriate. | | | | | | Final/Electronically | | | | | | signed / FERN | | | | | | VIRY 01/01/2013 | | | | | | 11:18AM | | | | + + + + + + + + | Specimen | + + | | + + + +---------+ + + | Performing | Address | City/State/Zipcode | Phone Number | | Organization | | | | + +---------+ + + | [facility] DEPARTMENT OF | | | | | RADIOLOGY | | | | + +---------+ + + documented in this encounter Visit Diagnoses + + | Diagnosis | + + | Shoulder pain Pain in joint, shoulder region | + + | Shoulder injury Injury, other and unspecified, shoulder and upper arm | + + documented in this encounter"
--- OUTSIDE RECORDS SUMMARY | ~2020-01-28 | XMS | Encounter Summary ---
Demographics + + + | Address | [address] | | | [place] [address] | + + + | Home Phone | | + + + | Preferred Language | Unknown | + + + | Marital Status | Single | + + + | Yarsani Affiliation | Unknown | + + + [...] Team Providers + +------+ + | Care Resident Care Technician Name | Role | Phone | + +------+ + | Matthew Moise MD | PCP | | + +------+ + Reason for Visit + + + | Reason | Comments | + + + | New Patient Visit | | + + + Office Visit - E/M Services (Routine) +--------+--------+ + + + + | Status | Reason | Specialty | Diagnoses / | Referred By | Referred To | | | | | Procedures | Contact | Contact | +--------+--------+ + + + + | Closed | | Ophthalmology | | [place], | [place], | | | | | | Cristhian Duarte MD | Tosin Mulligan MD | | | | | | [address] | [address] | | | | | | [address] | [address] | | | | | | [address] | [address] | | | | | | [address] | [place], [place] | | | | | | Phone: | [phone] | | | | | | [phone] | Phone: | | | | | | Fax: | [phone] | | | | | | [phone] | Fax: | | | | | | | [phone] | +--------+--------+ + + + + Encounter Details +--------+---------+ + + + | Date | Type | Department | Care Team | Description | +--------+---------+ + + + | 01/03/ | Office | [facility] | Tosin Clacny, | Neoplasm of | | 2018 | Visit | [place] [facility] | [address] | uncertain behavior | | | | [address] | [address] | of eye (Primary Dx) | | | | [address] | [place], [place] | | | | | Eye [place], [facility] | [address] | | | | | floor [place], [place] | [phone] | | | | | [address] | [...] encounter Progress Notes Tosin Clancy MD - 01/03/2018 8:40 AM PDTFormatting of this note might be different fro m the original. [facility] Progress Note 01/03/2018 Chief Complaint Patient presents with New Patient Visit Referred by Dr. Cristhian Barahona for conjunctival nevus OS consultation Pt states he has pigmented spot in left eye and noticed since 2004, pt notices gradual incr ease in size but he does not notice it often. Referred here because of growth noted on exam in Dr. Joy's office - patient not sure if it was true growth or just being seen twice. N o history of melanoma or other skin cancers. No family history of skin cancers. Has spent si gnificant time in sun throughout life. Non-smoker. No discomfort or pain OS Not using gtts currently Vision is stable OU Hx of metal exposure, incident with wire wheel in 2004 where pieces of wire hit his facee a nd body. Pt had a piece of wire in left eye and remembers burning sensation OS, pt states he took out of eye and had FB sensation & burning for a couple of days and went away. Pt is wo ndering if this incident had something to do with current consultation Pain: 0 Past ocular history: Conjunctival nevus OS Family ocular history: none reported PCP: Matthew Moise MD Referring: Cristhian Barahona MD ROS: Medications, allergies, medical, surgical and family history were reviewed by me at th is visit utilizing [facility] patient history form and Epic patient history pertinent positives: History reviewed. No pertinent past medical history. Past Surgical History Procedure Laterality Date Wrist surgery 2004 Family History History Smoking Status Former Smoker Smokeless Tobacco Never Used No Known Allergies All else unless noted was neg. (fever, wt. loss, ENT, cardiovascular, pulmonary, GI, urinar y, neurologic, endocrine, bleeding/blood disorders, AIDS/HIV, cancer/tumors, arthritis) [employer] Attestation: I, Erica Powell, performed and reviewed the above history, medica tions, allergies, as well as performed elements noted in the Base Ophthalmology Exam. Examination: Base Exam Visual Acuity (Snellen - Linear) Right Left Dist sc 20/20 -1 20/20 -1 Tonometry (Tonopen, 9:31 AM) Right Left Pressure 13 12 Dilation Both eyes: 2.5% Phenylephrine, 1.0% Mydriacyl @ 9:33 AM Pupils Pupils Dark Light APD Right PERRL 3 2 None Left PERRL 3 2 None Visual Daniel Left Right Full Full Extraocular Movement Right Left Full, Ortho Full, Ortho Neuro/Psych Oriented x3: Yes Mood/Affect: Normal Slit [...] Deep and quiet Deep and quiet Iris Round and dilated Round and dilated Lens Clear Clear Vitreous Normal Normal Fundus Exam Right Left Disc Normal Normal C/D Ratio 0.25 0.35 Macula Normal Normal Vessels Normal Normal Periphery Normal Normal IMPRESSION: 1. Elevated pigmented conjunctival lesion, OS - Has been present since at least 2004 - Cysts in lesion visible on clinical exam and anterior segment OCT - Patient is [place]ib[place] - Possible growth 2. Complexion-related hyperpigmentation, OD PLAN: 1. Discussed elevated pigmented lesions and differential diagnosis including, most likely, nevus vs. melanoma 2. Given presence since 2004 and clear cysts, discussed that most likely nevus, but if evid ence of growth or change, could have undergone malignant transformation 3. Will obtain records from Dr. Joy's office for size measurements - If change, plan for excision with cryotherapy Otherwise, plan for re-evaluation in 3 months RTC 3 months with slit lamp photos, sooner if needed I, Cceilia Maldonado, am functioning as a scribe for TOSIN CLANCY MD. I have reviewed and verified the above scribed note of my visit with this patient as record ed by Cecilia Maldonado. TOSIN CLANCY MD [facility] [place] [address] [facility] Mailcode: [place] [address] documented in this encounter Plan of Treatment +--------+---------+ + + + | Date | Type | Specialty | Care Team | Description | +--------+---------+ + + + | 03/11/ | Office | Ophthalmology | Tosin Clancy, | | | 2019 | Visit | | [address] | | | | [address] | | | | | | [place], [place] | | | | | | [address] | | | | | | [phone] | | | | | | | | +--------+---------+ + + + documented as of this encounter Procedures + +--------+ + + + | Procedure Name | Priori | Date/Time | Associated Diagnosis | Comments | | | ty | | | | + +--------+ + + + | OCT, ANTERIOR | Routin | 01/05/2018 | Neoplasm of | Results for this | | SEGMENT | e | 11:22 AM | uncertain behavior | procedure are in the | | | | PDT | of eye | results section. | + +--------+ + + + | SLIT LAMP PHOTOS | Routin | 01/03/2018 | Neoplasm of | Results for this | | | e | 9:57 AM | uncertain behavior | procedure are in the | | | | PDT | of eye | results section. | + +--------+ + + + documented in this encounter Results OCT, ANTERIOR SEGMENT (01/05/2018 11:22 AM PDT) + + + | Narrative | Performed At | + + + | [facility] | [facility] | | DocumentationLeft EyeType: Other. NotesElevated lesion of nasal | [facility]STITUTE | | conjunctiva with definite cysts | | | | | |Notes | | |Elevated lesion of nasal conjunctiva with definite cysts | | + + + + + + + + | Performing | Address | City/State/Zipcode | Phone Number | | Organization | | | | + + + + + | [facility] | [address] | [place] [address] | | | INSTITUTE | Debbie. | | | + + + + + SLIT LAMP PHOTOS (01/03/2018 9:57 AM PDT) + + + | Narrative | Performed At | + + + | Elevated | [facility] | | nasal, pigmented conjunctival lesion with variable pigmentation. | [facility]STITUTE | | +definite cysts | | + + + + + + + + | Performing | Address | City/State/Zipcode | Phone Number | | Organization | | | | + + + + + | [facility] | [address] | [place] [address] | | | [place] | Debbie. 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
--- OUTSIDE RECORDS SUMMARY | ~2020-01-28 | XMS | Clinical Summary ---
Demographics + + + | Address | [address] | | | [place] [address] | + + + | Home Phone | | + + + | Preferred Language | Unknown | + + + | Marital Status | Single | + + + | Mandaeism Affiliation | Unknown | + + + | Race | Unknown | + + + | Ethnic Group | Unknown | + + + Author + + + | Author | [facility] | | | and [place] | + + + | Organization | [facility] | | | and [place] | [...] Team Providers + +------+ + | Care Test Engine Operator Name | Role | Phone | + +------+ + | Lynn Gallardo PA-C | PCP | | + +------+ + Allergies + + + + + + | Active Allergy | Reactions | Severity | Noted | Comments | | | | | Date | | + + + + + + | Oxycodone | | | 05/19/20 | | | | | | 15 | | + + + + + + Medications + + + +---------+------+------+-------+ | Medication | Sig | Dispensed | Refills | Star | End | Statu | | | | | | t | Date | s | | | | | | Date | | | + + + +---------+------+------+-------+ | Atorvastatin | Take 25 mg of base | | 0 | | | Activ | | Calcium (LIPITOR PO) | by mouth Daily. | | | | | e | + + + +---------+------+------+-------+ Active Problems No known active problems Social History + +-------+ +--------+------+ | Tobacco [...] + + + + Plan of Treatment + + + + + | Health Maintenance | Due Date | Last Done | Comments | + + + + + | Vaccine: | | | | | Dtap/Tdap/Td (1 - | 5 | | | | Tdap) | | | | + + + + + | Vaccine: Influenza | | | | | (Season Ended) | 0 | | | + + + + + Results Not on filefrom Last 3 Months Insurance + +--------+ +--------+ +---------+------+ | Payer | Benefi | Subscriber | Effect | Phone | Address | Type | | | t Plan | ID | tonia | | | | | | / | | Dates | | | | | | Group | | | | | | + +--------+ +--------+ +---------+------+ | [facility] | PHP | [id number] | 09/30/19 | [phone] | | PPO | | PLAN | PEBB | | 13-Pre | 5 | | | | | STATEW | | sent | | | | | | YOLANDA | | | | | | + +--------+ +--------+ +---------+------+ + +--------+ +--------+ + + | Guarantor Name | Accoun | Relation to | Date | Phone | Billing Address | | | t Type | Patient | of | | | | | | | | | | + +--------+ +--------+ + + | Neptali Mccormick | Person | Self | [birth year] | [address] | | | al/Fam | | 1975 | [phone] | [place] [address] | | | vinicius | | | 6 (Home) | | + +--------+ +--------+ + + Advance Directives + + + + + | Type | Date Recorded | Patient | Explanation | | | | Pony Worker | | + + + + + | Power of | | | | | Oral Surgeon | | | | + + + + + | Advance | | | | | Directive | | | | + + + + +
--- OUTSIDE RECORDS SUMMARY | ~2020-01-28 | XMS | Encounter Summary ---
Demographics + + + | Address | [address] | | | [place] [address] | + + + | Home Phone | | + + + | Preferred Language | Unknown | + + + | Marital Status | Single | + + + | Sabianism Affiliation | Unknown | + + + | Race | Unknown | + + + | Ethnic Group | Other Race | + + + Author + + + | Author | [facility] | + + + | Organization | [facility] | + + + | Address | Unknown | + + + | Phone | Unavailable | + + + Support + + +---------+ + | Name | Relationship | Address | Phone | + + +---------+ + | None Per Pt | ECON | Unknown | Unavailable | + + +---------+ + Care Team Providers + +------+ + | Care Breastfeeding Educator Name | Role | Phone | + +------+ + | Matthew Moise MD | PCP | | + +------+ + Reason for Referral Consult to [place] (Routine) +--------+--------+ + + + + | Status | Reason | Specialty | Diagnoses / | Referred By | Referred To | | | | | Procedures | Contact | Contact | +--------+--------+ + + + + | Closed | | Orthopedics | Diagnoses | [place], | [facility] | | | | | Shoulder | Cullen Nassar MD | [address] | | | | | injury | [address] | | | | | [address] | [address] | [place] for | | | | | s (muscle) | [facility] | [facility] and | | | | | (tendon) | [place], [place] | Healing, | | | | | sprain | [address] | [address], | | | | | Superior | Phone: | 12th floor | | | | | glenoid | [phone] | [facility] [place] | | | | | labrum | Fax: | [address] | | | | | lesion | [phone] | Phone: | | | | | Procedures | | [phone] | | | | | REQUEST TO | | Fax: | | | | | SURGERY | | [phone] | | | | | ZYGLO TECHNICIAN | | | | | | | [place] SHLDR | | | | | | | ARTHROSCOP,S | | | | | | | URG,CAPSULOR | | | | | | | RHAPHY [place] | | | | | | | SHLDR | | | | | | | ARTHROSCOP,S | | | | | | | URG,REPAIR,S | | | | | | | LAP LESION | | | | | | | [place] SHLDR | | | | | | | ARTHROSCOP,P | | | | | | | ART DEBRIDE | | | +--------+--------+ + + + + Reason for Visit + + + | Reason | Comments | + + + | New patient | | | consultation | | + + + Office Visit [...] | | | carry | | [address], | | | | | imaging. | | [place] | | | | | L shoulder | | [address] | | | | | pain, no | | Phone: | | | | | imaging or | | [phone] | | | | | notes | | Fax: | | | | | | | [phone] | +--------+--------+ + + + + Encounter Details +--------+---------+ + + + | Date | Type | Department | Care Team | Description | +--------+---------+ + + + | 01/01/ | Office | Orthopaedics | Cullen Cavanaugh, | Shoulder pain | | 2012 | Visit | Faculty at Center | [address] | (Primary Dx); | | | | for Health and | [address] | Shoulder injury | | | | Healing [address] | [place], [place] | | | | | [facility] for | [address] | | | | | Health and Healing, | [phone] | | | | | [facility] | | | | | | floor [facility] [place] | | | | | | [address] | | | | | | [phone] | | | +--------+---------+ + + + [...] Weight | 95.3 kg (210 lb) | 01/01/2013 9:38 AM | | | | | PDT | | + + + + + | Height | 162.6 cm (5' 4") | 01/01/2013 9:38 AM | | | | | PDT | | + + + + + | Body Mass Index | 36.05 | 01/01/2013 9:38 AM | | | | | PDT | | + + + + + documented in this encounter Progress Notes Cullen Cavanaugh MD - 01/01/2013 9:46 AM PDTFormatting of this note might be different fr om the original. PATIENT: Neptali Mccormick [facility] MR#: [id number] : 1975 REQUESTING PROVIDER: No Referring Provider Per Patient NO REFERRING PROVIDER PER PT PRIMARY CARE PROVIDER: Matthew Moise MD CLINIC: [facility] Sports Medicine - Orthopedic Surgery History of Present Illness: Neptali Mccormick is a 37 y.o. right hand dominant male who is self-referred and presents to [facility] today for evaluation of his right shoulder symptoms. Symptoms started years ago. No sp ecific history of trauma or remarkable injury. 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 Pain is intermittent depending on ac tivity (punching bag, sleep on that side, allowing shoulder to relax while running). He has not noted decreased range of motion. Neptali mechanical symptoms of clicking and instability. Pt denies numbness and tingling. His shoulder pain worsens with overhead activity and reach ing forward. His shoulder pain improves with rest. He also complains of night pain and diffi culty sleeping. Past treatment includes nothing specific. No past medical history on file. WRIST SURGERY 2004 reports that he has quit smoking. He has never used smokeless tobacco. He reports that he does not drink alcohol. Family History: Non-contributory No current outpatient prescriptions on file. has no known allergies. REVIEW OF SYSTEMS: See scanned intake form. Pertinent positives include None. Patient intake form with 12 point review of systems reviewed. Physical Exam: Vital Signs: BP 147/90 | Pulse 84 | Ht 1.626 m (5' 4") | Wt 95.255 kg (210 lb) | BMI 36.05 kg/(m^2) General: Alert and oriented x 3 Affect: pleasant, interactive Skin: Clear, no rashes. normal Scoliosis: None Range of Motion: (* = symptomatic) RIGHT LEFT Active Passive Active Passive FF 180 180 180 180 ER at 0 degrees 70 At 90 90 70 At 90 90 IR T6 at 90 60 T6 at 90 60 ABD 180 180 180 180 Strength: (0-5/5) (* = symptomatic) RIGHT LEFT ABD 5 5 ER 5 5 IR -belly press 5 5 IR-bear hug 5 5 IR - lift off 5 5 OBSERVATION/SCAPULAR MECHANICS: WNLs except as noted below RIGHT LEFT Atrophy/Asymmetry Scapular Dyskinesia Crepitation Surgical Scars ROTATOR CUFF: WNLs except as noted below RIGHT LEFT SS/GT Tenderness Neer's Sign Pendleton' Sign Drop - Arm AC Tenderness + Cross-chest Adduction + Cheshire's test + Bicipital Tenderness Speed's Test INSTABILITY: (*= painful) WNLs except as noted below RIGHT LEFT Generalized Laxity Ant. Apprehension Montse Relocation Test Jerk Test Circumduction Test LOAD SHIFT (GRADE): WNLs and Symmetric except as noted below RIGHT LEFT Anterior Posterior Sulcus SULCUS (ER) CERVICAL SPINE: WNLs except as noted below ROM Tenderness Spurling Neurological Exam OTHER PHYSICAL FINDINGS: Radiographs: WNL except as below RIGHT LEFT X-rays Mod AC jt OA MRI SLAP, inf and ant/onf labral tear, possible GLAD IMPRESSION: Neptali Mccormick is a 37 y.o. male with right shoulder Labral tear. AC joint ar thritis. I suspect hiorical instability/MDI but I am not detecting that on exam today and he denies subjective instability and feels more SLAP/ sharp pain type symptoms at this time. PLAN: After discussing my thoughts and management options, we plan to proceed with arthroscopic i ntervention for labral repair with possible minimal capsulorrhaphy based on exam under anest hesia (may not need any) and AC joint injection today in clinic. He is eager to proceed with arthroscopic intervention. After a PARQ conference regarding this procedure, alternative, risks and an opportunity for questions is completed for a AC joint injection. This was performed under sterile condition s, via a standard approach, 2 cc of fluid is injected comprised of 1.5cc lidocaine and 0.5cc of Kenalog (40mg/cc). No complications are encountered and a bandage is applied. Following a 5 minute convalescence period, the patient describes significant pain relief. Education a nd explanation regarding the underlying pathology is again provided as well as restrictions and recommendations. documented in this e ncounter Plan of Treatment +--------+---------+ + + + | Date | Type | Specialty | Care Team | Description | +--------+---------+ + + + | 03/11/ | Office | Ophthalmology | Hellen Clancy, | | | 2019 | Visit | | [address] | | | | | [address] | | | | | | [place], [place] | | | | | | [address] | | | | | | [phone] | | | | | | | | +--------+---------+ + + + documented as of this encounter Results X-RAY SHOULDER 3+ VIEWS [...] Final/Electronically | | | | | | alfonso / FERN | | | | | | VIRY 01/01/2013 | | | | | | 11:18AM | | | | + + + + + + + + | Specimen | + + | | + + + +---------+ + + | Performing | Address | City/State/Zipcode | Phone Number | | Organization | | | | + +---------+ + + | [facility] | | | | [facility] | | | | + +---------+ + + documented in this encounter Visit Diagnoses + + | Diagnosis | + + | Shoulder pain - Primary Pain in joint, shoulder region | + + | Shoulder injury Injury, other and unspecified, shoulder and upper arm | + + documented in this encounter
--- OUTSIDE RECORDS SUMMARY | ~2020-01-28 | XMS | Encounter Summary ---
Demographics + + + | Address | [address] | | | [place] [address] | + + + | Home Phone | | + + + | Preferred Language | Unknown | + + + | Marital Status | Single | + + + | Yarsanism Affiliation | Unknown | + + + [...] Team Providers + +------+ + | Care Physical Geographer Name | Role | Phone | + [...] Radiology | Diagnoses | Quil[place], | [facility] | | | | | Shoulder | Nicki Escalona, | [address] | | | | | pain | PA-C [address] | [facility] | | | | | Procedures | [address] | [address]z [address] Dios | | | | | MRI | [facility] | Research | | | | | ARTHROGRAM | Rd | Center | | | | | SHOULDER LT | [place], [place] | [place], [place] | | | | | | [address] | [address] | | | | | | Phone: | Phone: | | | | | | [phone] | [phone] | | | | | | Fax: | Fax: | | | | | | [phone] | [phone] | +--------+--------+ + + + + Diagnostic Testing (Routine) +--------+--------+ + + + [...] | | | | Procedures | [facility] | Center for | | | | | X-RAY | [facility] | Health and | | | | | ARTHROGRAM | Rd | Healing, | | | | | SHOULDER LT | [place], [place] | Building [address], | | | | | W/INJECTION | [address] | 3rd Floor | | | | | | Phone: | [place], [place] | | | | | | [phone] | [address] | | | | | | Fax: | Phone: | | | | | | [phone] | [phone] | | | | | | | Fax: | | | | | | | [phone] | +--------+--------+ + + + + Reason [...] | | Labral Tear, | | [address] [facility] | | | | | pt to hand | | [address] | | | | | carry | | Rd [place], | | | | | imaging. | | [place] | | | | | L shoulder | | [address] | | | | | pain, no | | Phone: | | | | | imaging or | | [phone] | | | | | notes | | Fax: | | | | | | | [phone] | +--------+--------+ + + + + Encounter Details +--------+---------+ + + + | Date | Type | Department | Care Team | Description | +--------+---------+ + + + | 06/04/ | Office | Orthopaedics | Nicki Abraham | Shoulder pain | | 2012 | Visit | [facility] [place] | RAUL Escalona [address] | (Primary Dx); [facility] | | | | for Health and | [address] | (superior labrum | | | | Healing [address] | [place], [place] | from anterior to | | | | [facility] for | [address] | posterior) tear | | | | Health and Healing, | [phone] | | | | | | | | | | | floor [place], [place] | | | | | | [address] | | | | | | [phone] | | | +--------+---------+ + + + [...] Weight | 95.3 kg (210 lb) | 06/04/2013 10:21 AM | | | | | PDT | | + + + + + | Height | 162.6 cm (5' 4") | 06/04/2013 10:21 AM | | | | | PDT | | + + + + + | Body Mass Index | 36.05 | 06/04/2013 10:21 AM | | | | | PDT | | + + + + + documented in this encounter Progress Notes Nicki Abraham PA-C - 06/04/2013 10:32 AM PDTFormatting of this note might be differe nt from the original. Neptali Mccormick is a 37 y.o. right hand dominant male complaining of left shoulder pain and instability. He also complains of right shoulder pain and instablility, though feels that the left is wo rse. He was previously indicated for right shoulder surgery by Dr Cavanaugh but would like to attend to the left before pursuing this Referred by self for orthopedic consultation and evaluation. History of present complaint: First noticed: decades. Result of: gradual onset. Location: anterior and posterior. Pain: Average pain level 2 out of 10 at rest and 6/10 during maximal activity. The pain is characterized as varrying this activity. Symptoms are exacerbated by: abduction with external rotation positioning Symptoms improve with rest. Past Medical/Surgical history: Past medical and surgical history reviewed per patient intake form Treatments for injury/condition have included: nothing specific. Family History/ Review of Systems: Family history reviewed per patient intake form. Ten point review of systems completed, pertinent positives include: none No current outpatient prescriptions on file prior to visit. No current facility-administered medications on file prior to visit. 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 Physical Exam: Vital Signs: AA+O. Normal resting respiratory rate. BMI: Body mass index is 36.03 kg/(m^2). HEIGHT: Ht Readings from Last 1 Encounters: 06/04/13 1.626 m (5' 4") WEIGHT: Wt Readings from Last 1 Encounters: 06/04/13 95.255 kg (210 lb) Mental Status: Alert, awake, oriented and cooperative. Skin: clean and clear Observation: Within normal limits except as noted. Right Left Atrophy/Asymmetry Scapular Kinetics Generalized Laxity Motion: Within normal limits except as noted. Right Left Active Passive Active Passive Forward Flexion External Rotation @ 0 deg ER @ 90 deg ABD IR @ 90 deg ABD Abduction Strength: Within normal limits except as noted. Right Left Supraspinatus Infraspinatus Subscapularis Deltoid Biceps Testing: Within normal limits except as noted. Right Left Tenderness Impingement Drop - Arm Cross-chest Nu Mine's Stability: Within normal limits except as noted. Right Left Anterior + Posterior + Sulcus + Cervical Spine: Within normal limits except as noted. Right Left Motion Tenderness C5 (Motor/Sensory) / / C6 / / C7 / / C8 / / T1 / / Other: Radiographs: Within normal limits except as noted. Mo/Yr Right Left X-rays 06/04/13 normal MR Diagnosis: Shoulder pain, likely MDI contributing. He has similar symptoms contralaterally Plan: Physical therapy recommended, Education and encouragement provided, Home exercise pro gram recommended and Injection therapy recommended- He responded well to an AC injection on this right side and would like the same for the left After a PARQ conference regarding this procedure, [...] the patient describes significant pain relief. Education an d explanation regarding the underlying pathology is again provided as well as restrictions a nd recommendations. He will see Dr Cavanaugh for eval after his MRI documented in t his encounter Plan of Treatment +--------+---------+ + + + | Date | Type | Specialty | Care Team | Description | +--------+---------+ + + + | 03/11/ | Office | Ophthalmology | Hellen Clancy, | | | 2019 | Visit | | [address] | | | | | [address] | | | | | | [place], [place] | | | | | | [address] | | | | | | [phone] | | | | | | | | +--------+---------+ + + + documented as of this encounter Procedures + +--------+ + + + | Procedure Name | Priori | Date/Time | Associated Diagnosis | Comments | | | ty | | | | + +--------+ + + + | GA INTERMEDIATE | Routin | 06/08/2013 | SLAP (superior | | | JOINT OR BURSA | e | 9:56 AM | labrum from anterior | | | ASPIRATION AND/OR | | PDT | to posterior) tear | | | INJ W/O US GUIDE | | | | | + +--------+ + + + documented in this encounter Results MRI ARTHROGRAM SHOULDER LT (06/30/2013 6:24 PM PDT) + + + + + + | Component | Value | Ref Range | Performed | Pathologist | | | | | At | Signature | + + + + + + | MR | STUDY: MRI ARTHRO | | | | | ARTHROGRAM | SHOULDER LEFT 06/30/13 | | | | | SHOULDER LT | 15:32:00 HISTORY: Left | | | | | | shoulder pain. | | | | | | COMPARISON: Left | | | | | | shoulder | | | | | | radiographs06/04/13. | | | | | | TECHNIQUE: Following | | | | | | injection of | | | | | | intra-articular contrast | | | | | | (described in detailin | | | | | | another report), the | | | | | | following MR pulse | | | | | | sequences were | | | | | | performed:1. Axial, | | | | | | sagittal, coronal, and | | | | | | ABER fat-suppressed | | | | | | T1-weighted FSE.2. Axial | | | | | | and coronal | | | | | | fat-suppressed | | | | | | intermediate TE-weighted | | | | | | FSE.3. Sagittal | | | | | | T1-weighted FSE. | | | | | | FINDINGS:LABRUM/CAPSULE: | | | | | | The ABER images show | | | | | | linear contrast signal | | | | | | intensityundercutting | | | | | | the base of the | | | | | | anteroinferior labrum | | | | | | (ABER images | | | | | | 9-10),compatible with a | | | | | | nondisplaced tear. | | | | | | There is linear | | | | | | intrasubstance | | | | | | signalintensity within | | | | | | the superior labrum | | | | | | extending from the | | | | | | biceps labral | | | | | | anchorposteriorly | | | | | | (Coronal T2 17-20), | | | | | | compatible with a | | | | | | nondisplaced SLAP tear. | | | | | | Theglenoid labrum is | | | | | | otherwise maintained. | | | | | | The superior, middle, | | | | | | and anterior | | | | | | andposterior inferior | | | | | | glenohumeral ligaments | | | | | | are intact. ROTATOR | | | | | | CUFF: The supraspinatus, | | | | | | infraspinatus, teres | | | | | | minor, and | | | | | | subscapularisportions of | | | | | | the rotator cuff are | | | | | | normal. There is no | | | | | | fatty infiltration | | | | | | oratrophy of the rotator | | | | | | cuff musculature. | | | | | | BICEPS: The long head of | | | | | | the biceps tendon is | | | | | | normal in signal and | | | | | | location.No abnormality | | | | | | is seen at the | | | | | | biceps-labral anchor. | | | | | | An 8 x 6-mm | | | | | | intermediatesignal ovoid | | | | | | filling defect is noted | | | | | | in the biceps tendon | | | | | | sheath, likely achondral | | | | | | loose body. | | | | | | OSSEOUS/ARTICULAR | | | | | | STRUCTURES: There is a | | | | | | 17-mm transverse by | | | | | | 22-mm craniocaudadregion | | | | | | of high-grade | | | | | | partial-thickness and | | | | | | full-thickness | | | | | | denudation of | | | | | | theanteroinferior | | | | | | glenoid articular | | | | | | cartilage, with | | | | | | underlying subchondral | | | | | | cystformation. There | | | | | | is corresponding high | | | | | | grade partial and full | | | | | | thicknesscartilage loss | | | | | | along the | | | | | | posteroinferior humeral | | | | | | head articular | | | | | | cartilage, | | | | | | withunderlying | | | | | | subchondral cyst | | | | | | formation. There is | | | | | | mild humeral head | | | | | | spurring.Multiple | | | | | | intraosseous cysts are | | | | | | noted in the | | | | | | posterolateral humeral | | | | | | head. [place] | | | | | | signal is otherwise | | | | | | normal. OSSEOUS ACROMIAL | | | | | | OUTLET: The | | | | | | acromioclavicular joint | | | | | | is normal. There is no | | | | | | osacromiale. The | | | | | | acromial morphology is | | | | | | type II. MISCELLANEOUS: | | | | | | No fluid is present in | | | | | | the | | | | | | subacromial/subdeltoid | | | | | | bursa. IMPRESSION: 1. | | | | | | Nondisplaced tear of | | | | | | the base of the | | | | | | anteroinferior glenoid | | | | | | labrum. 2. 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 3. | | | | | | Nondisplaced SLAP tear | | | | | | of the posterosuperior | | | | | | glenoid labrum. | | | | | | Attending Radiologists: | | | | | | JUANCHO ALAS MDAuthor: | | | | | | KIRSTY ECHEVERRIA MD I | | | | | [...] | | | | | | 07/01/2013 15:58 PM | | | | | | Pending final approval | | | | | | / KIRSTY ECHEVERRIA | | | | | | 07/01/2013 10:54 AM | | | | | | Preliminary / | | | | | | KIRSTY ECHEVERRIA | | | | | | 06/30/2013 18:07 PM | | | | + + + + + + + + | Specimen | + + | | + + + +---------+ + + | Performing | Address | City/State/Zipcode | Phone Number | | Organization | | | | + +---------+ + + | [facility] DEPARTMENT OF | | | | | RADIOLOGY | | | | + +---------+ + + X-RAY ARTHROGRAM SHOULDER LT W/INJECTION (06/30/2013 4:53 [...] | | | + +---------+ + + X-RAY SHOULDER 3+ VIEWS LEFT (06/04/2013 10:26 [...] joint, shoulder region | + + | SLAP (superior labrum from anterior to posterior) tear Superior glenoid labrum lesion | + + documented in this encounter
--- OUTSIDE RECORDS SUMMARY | ~2020-01-28 | XMS | Encounter Summary ---
Demographics + + + | Address | [address] | | | [place] [address] | + + + | Home Phone [...] Author + + + | Author | [facility] | + + + | Organization | [facility] | + + + | Address | Unknown | + + + | Phone | Unavailable | + + + Support + + +---------+ + | Name | Relationship | Address | Phone | + + +---------+ + | None Per Pt | ECON | Unknown | Unavailable | + + +---------+ + Care Team Providers + +------+ + | Care Dinkey Brakeman Name | Role | Phone | + +------+ + | Matthew Moise MD | PCP | | + +------+ + Reason for Visit Diagnostic Testing (Routine) [...] | | pain | PA-C [address] | [facility] | | | | | Procedures | [address] | [address]z [address] Dios | | | | | MRI | [facility] | Research | | | | | ARTHROGRAM | Rd | Center | | | | | SHOULDER LT | [place], [place] | [place], [place] | | | | | | [address] | [address] | | | | | | Phone: | Phone: | | | | | | [phone] | [phone] | | | | | | Fax: | Fax: | | | | | | [phone] | [phone] | +--------+--------+ + + + + Encounter Details +--------+ + + + + | Date | Type | Department | Care Team | Description | +--------+ + + + + | 06/30/ | Hospital | Diagnostic Imaging | | | | 2012 | Encounter | Services at [facility] | | | | | | [address] | | | | | | [place] | | | | | | [facility] | | | | | | [place], [place] | | | | | | [address] | | | | | | [phone] | | | +--------+ + + + [...] [address] | | | | | | [place], [place] | | | | | | [address] | | | | | | [phone] | | | | | | | | +--------+---------+ + + + documented as of this encounter Procedures + +--------+ + + + | Procedure Name | Priori | Date/Time | Associated Diagnosis | Comments | | | ty | | | | + +--------+ + + + | MRI ARTHROGRAM | Routin | 06/30/2013 | Shoulder pain | Results for this | | SHOULDER LT | e | 6:24 PM | | procedure are in the [...] | | | | | | JUANCHO EVETTE, MDAuthor: | | | | | | [...]
[2020-01-28] MEDS ORDERED: CIPRO500 MG PO (12:58)
[2020-01-28] MEDS ORDERED: FLAGYL500 MG PO (12:58)
[2020-01-28] MEDS ORDERED: NORCO 7.5-3251 EACH PO (12:58)
== END 2020-01-28 14:57 | disposition home or self-care (01) ==
LOC: ED 10:48
DX: K57.32 Diverticulitis of large intestine without perforation or abscess without bleeding (principal); I10 Essential (primary) hypertension; Z88.5 Allergy status to narcotic agent; Z79.899 Other long term (current) drug therapy
CPT/HCPCS: 74177; 80053; 81001; 83690; 85025; 96361; 96367; 96375; 96376; 99284-25; J1170; J1956; J2405; J7030; Q9967

== ENCOUNTER 2020-09-08 06:09 | Day surgery (SDC) | payer OTHER ==
[~2020-09-08] VITALS: Ht 165.1 cm; Wt 102.0 kg
[~2020-09-08 06:09] MED LIST changes: +CIPRO500 MG PO; +FLAGYL500 MG PO; +NORCO 7.5-3251 EACH PO
--- NOTE | 2020-09-08 09:35 | NUR ---
09/08/20 0934 PolinaShari M 0912- PT TO PACU IN SF POSITION. EYES CLOSED WITH ORAL AIRWAY IN PLACE. PT IS TACHYPNIC WITH SHALLOW BREATHS. SP02 90% ON 10 L O2 VIA SIMPLE MASK. LUNGS CLEAR BY AUSCULTATION, DIMINISHED IN THE BASES. ARCHITECTURE INSTRUCTOR AT BEDSIDE GIVING REPORT. 0915- PT CONTINUES TO SLEEP WITH ORAL AIRWAY IN PLACE. O2 TITRRATED TO 15 L NRB MASK. PT RESPONDING TO VERBAL STIMULI BUT DOES NOT FOLLOW COMMANDS. ORAL AIRWAY REMAINS IN PLACE. 0919- PT COUGHING AND FOLLOWING COMMANDS. ORAL AIRWAY REMOVED. SPO2 >95% ON 15L O2 VIA NRB MASK. MODERATE BLOODY SPUTUM ON ORAL AIRWAY, PT SUCTIONED AND ENCOURAGED TO COUGH. 0925- PT DENIES PAIN AND NAUSEA. KEEPS EYES CLOSED. PT ENCOURAGED TO COUGH AND TAKE DEEP BREATHS. SPO2 >95% ON 6 L VIA SIMPLE MASK. 0930- PT AWAKENS EASILY TO VOICE. SLEEPING COMFORTABLY. SPO2 >95% ON 6 L O2 VIA SIMPLE MASK. O2 TITRATED DOWN TO ROOM AIR. 0933- SP02 UPPER 80S ON ROOM AIR. PT PLACED ON 4 L O2 VIA OXY MASK. PT ENCOURAGED TO TAKE DEEP BREATHS AND COUGH. WILL CONTINUE TO MONITOR.
--- NOTE | 2020-09-08 09:57 | NUR ---
PATIENT BACK TO DAYSURGERY FROM PACU. PATIENT AWAKE AND ALERT. NO PAIN OR NAUSEA REPORTED. MUSTACHE BANDAGE C/D/I. PATIENT ON 2L OXIMASK OXYGEN SATURATION 95%. PROVIDED ICE WATER AND SNACKS. PATIENT REPORTS NOT INTERESTED RIGHT NOW BUT MAYBE IN 20 MINUTES. CALL LIGHT WITHIN REACH.
--- NOTE | 2020-09-08 11:30 | NUR ---
PRESCRIPTION CALLED IN TO [facility] PER DR BARBOSA ORDERS.
--- NOTE | 2020-09-08 11:34 | NUR ---
PT UP TO THE RESTROOM. PT VOIDS AND AMBULATES WITH NO COMPLICATIONS. PT RETURNS TO BED, DAUGHTER AT THE BEDSIDE, CALL LIGHT WITHIN REACH.
--- NOTE | 2020-09-08 11:45 | NUR ---
RED DRAINAGE NOTED ON MUSTACHE DRESSING. DRESSING CHANGE PERFORMED AND DEMONSTRATED BY SOCORRO Duarte RN. GAUZE AND TAPE SENT HOME WITH PT. DISCHARGE INSTRUCTIONS DISCUSSED AND QUESTIONS ANSWERED WITH PT AND DAUGHTER. DISCHARGE CRITERIA MET. PT GETTING DRESSED AND READY TO GO HOME.
--- NOTE | 2020-09-08 11:58 | NUR ---
PT LEFT DAY SURGERY RM TX VIA WHEELCHAIR. PT TRANSFERRED FROM WHEELCHAIR TO VEHICLE INDEPENDENTLY WITH NO COMPLICATIONS. TRANSPORATION HOME PROVIDED BY DAUGHTER.
--- NOTE | 2020-09-08 14:29 | NUR ---
PT ALERT, ORIENTED AND SUPPORTED BY HIS DAUGHTER ANDREW. PT SEEMS PREPARED, MENTIONED THAT HE HAD DONE SOME RESEARCH IN PREP FOR TODAY. ALL HIS QUESTIONS ASKED AND ANSWERED. PT REQUESTED PRAYER, WILL FOLLOW NEEDED
--- NOTE | 2020-09-08 21:32 | EKG ---
[facility] [address] [facility] [place] [address] Signed Normal sinus rhythm Normal ECG When compared with ECG of 06-DEC-2019 22:13, No significant change was found Confirmed by ALFONSO CHENG MD ([id number]) on 09/08/2020 9:32:38 PM Electronically Signed By: ALFONSO CEHNG MD 09/08/202131 PATIENT NAME: TORI MONTOYA Electrocardiogram DATE OF : 73 PHYSICIAN: ALFONSO CHENG MD REPORT #: [id number] REPORT IS CONFIDENTIAL AND NOT TO BE RELEASED WITHOUT AUTHORIZATION
--- NOTE | 2020-09-09 13:24 | [place] ---
[facility] [address] [place], [place] [address] Signed DATE OF OPERATION: 09/08/2020 SURGEON: Josephine Bledsoe MD PREOPERATIVE DIAGNOSES: 1. Deviated nasal septum. 2. 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 4. Nasal obstruction. 5. Obstructive sleep apnea. POSTOPERATIVE DIAGNOSES: 1. Deviated nasal septum. 2. 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 4. Nasal obstruction. 5. Obstructive sleep apnea. PROCEDURES: 1. Nasal septoplasty. 2. Submucous resection of inferior turbinates bilaterally, [id number]. 3. Grafting of septal cartilage to internal nasal valve. INDICATIONS: This is a 45-year-old male, who has progressive nasal obstruction in his lifetime, this has also been concomitant with obstructive sleep apnea. The patient is on CPAP machine with poor tolerance because of nasal congestion or stuffiness. Even during the day, he does not breathe well through his nose. On examination, the patient had massive inferior turbinates. The nasal steroid sprays have not worked sufficiently for this, also with deep breaths even when dilating the nose by topical decongestant sprays. The patient's internal valves are very flimsy, no cartilage at all with collapse as well as. High septal deviation as well. It was felt this could be corrected all in one procedure or one operation. DESCRIPTION OF PROCEDURE: The patient was placed in a supine position, had an orotracheal intubation, was placed under general anesthesia. The inferior turbinates and septum were injected with 5 mL of 1% lidocaine with 1:200,000 epinephrine. During this procedure before and after with the flaps elevated, another 4 mL of 0.25% Marcaine with 1:200,000 epinephrine were used. Stab incisions were made in the anterior surface of both inferior turbinates, then with Electronically Signed By: JOSEPHINE BLEDSOE MD 09/09/20 1324 PATIENT NAME: TORI MONTOYA OPERATIVE REPORT DATE OF : 73 REPORT #: [id number] PHYSICIAN: JOSEPHINE BLEDSOE MD PCP: GALA YODER REPORT IS CONFIDENTIAL AND NOT TO BE RELEASED WITHOUT AUTHORIZATION [facility] [address] [place], [place] [address] Signed the scalpel blade sharply was dissected off the turbinate bone. Elevating the mucoperiosteum off the turbinate bone and with the caudal dissection tool, the turbinate bone was isolated and then this was grasped with a streamline R17su forceps fractures and off little pieces and taken out of the turbinate envelope. This was done on both sides. The turbinate, which was deeper, was broken into little pieces with curette with the caudal dissection tool removed from the airway. The incision for the septum was made on the junction with the floor on the left side lifting up the mucoperichondrium in a nice tight envelope without any fenestra. The bone was from cartilage up high and then the section of bone with a section of cartilage was removed with the Carpio scissors and Bayonet forceps to make into piecemeal mass. This bone after was taken out, was then from the junction and cut into strips making little tunnels pocket in the vestibule deep, so that they were lengthwise could go up to the edge of the piriform bone and then drops of clindamycin replaced into this pocket and closure was with 4-0 chromic. The septal flaps were then placed together with 4-0 gut and the anterior incision closed with 4-0 chromic. Telfa was rolled up and put into the nasal cavities while the patient was recovering to keep those turbinates tightly compressed, so it would not fill up with blood, the patient to have a nasal airway and can use a CPAP machine tonight. The patient went to the recovery room. He will be sleeping in an elevated position. There were no complications. Estimated blood loss between 60 and 80 mL. Josephine Bledsoe MD [facility]/MODL /[id number] Copies: ~ Electronically Signed By: JOSEPHINE BLEDSOE MD 09/09/20 1324 PATIENT NAME: TORI MONTOYA OPERATIVE REPORT DATE OF : 73 REPORT #: [id number] PHYSICIAN: JOSEPHINE BLEDSOE MD PCP: GALA YODER REPORT IS CONFIDENTIAL AND NOT TO BE RELEASED WITHOUT AUTHORIZATION
== END 2020-09-08 11:55 | disposition home or self-care (01) ==
LOC: DS 06:09 → OPS 06:09 → DS 06:45 → OPS 06:45 → DS 08:15 → OPS 11:55
PROVIDERS: ATTEND Otolaryngology
PROC: 09BL0ZZ Excision of Nasal Turbinate, Open Approach (ICD-10-PCS; 2020-09-08)
PROC: 09RM07Z Replacement of Nasal Septum with Autologous Tissue Substitute, Open Approach (ICD-10-PCS; principal; 2020-09-08 06:45)
DX: J34.2 Deviated nasal septum (principal); J34.3 Hypertrophy of nasal turbinates; J34.89 Other specified disorders of nose and nasal sinuses; G47.33 Obstructive sleep apnea (adult) (pediatric); I10 Essential (primary) hypertension; E66.01 Morbid (severe) obesity due to excess calories; Z68.41 Body mass index [BMI] 40.0-44.9, adult; Z79.899 Other long term (current) drug therapy; Z88.5 Allergy status to narcotic agent; Z01.812 Encounter for preprocedural laboratory examination; Z20.828 Contact with and (suspected) exposure to other viral communicable diseases
CPT/HCPCS: 00160; 93005; 93010; J0330; J1100; J1885; J2405; J2704; J2765; J3010; J7121

== ENCOUNTER 2021-06-02 22:48 | Emergency (ER) | payer OTHER ==
[~2021-06-02] VITALS: Ht 165.1 cm; Wt 104.3 kg
[2021-06-03] MEDS ORDERED: LIDODERM1 EACH TOP (02:38)
[2021-06-03] MEDS ORDERED: TYLENOL EXTRA500 MG PO (02:38)
== END 2021-06-03 02:55 | disposition home or self-care (01) ==
LOC: ED 22:48
DX: R10.11 Right upper quadrant pain (principal); I10 Essential (primary) hypertension; Z88.5 Allergy status to narcotic agent; Z79.899 Other long term (current) drug therapy
CPT/HCPCS: 74177; 76705; 80053; 81001; 83690; 83735; 85025; 99284-25; A9270; J1885; Q9967

== ENCOUNTER 2022-10-22 06:45 | Emergency (ER) | payer OTHER ==
[~2022-10-22] VITALS: Ht 162.6 cm; Wt 102.1 kg
[~2022-10-22 06:45] MED LIST changes: +LIDODERM1 EACH TOP; +TYLENOL EXTRA500 MG PO
[2022-10-22] MEDS ORDERED: LOSARTAN POTASS50 MG PO (06:56)
[2022-10-22] MEDS ORDERED: HYDROCODON-ACE1 EA10 PO (11:41)
== END 2022-10-22 12:03 | disposition home or self-care (01) ==
LOC: ED 06:45
DX: S40.011A Contusion of right shoulder, initial encounter (principal); S20.211A Contusion of right front wall of thorax, initial encounter; I10 Essential (primary) hypertension; Z88.5 Allergy status to narcotic agent; Z79.899 Other long term (current) drug therapy; V89.2XXA Person injured in unspecified motor-vehicle accident, traffic, initial encounter
CPT/HCPCS: 36415; 70450; 71260; 72125; 74177; 80053; 81003; 85025; 96374; 99285-25; A9270; G0480; J2405; J7121; Q9967